=== PATIENT | male | born 1970 | race Caucasian/White ===

== ENCOUNTER 2024-05-12 21:44 | Emergency (ER) | payer BC, SELFPAY ==
--- NOTE | ~2024-05-12 | CT_ITS ---
EXAMINATION: CTA chest abdomen pelvis DATE: 05/12/2024 22:48 INDICATION: Chest pain radiating to the back. TECHNIQUE: Computed tomographic angiography (CTA) of the chest, abdomen, and pelvis was performed wit h 100 mL Omnipaque-350 intravenous contrast. Automated exposure control and iterative reconstruction technique were employed. The dose-length product was 1387.60 mGy-cm. Maximum intensity projection 3D- reconstructions of the aorta and other arteries were constructed by the technologist on a separate wo rkstation. COMPARISON: None. FINDINGS: CHEST CTA: The lungs demonstrate minimal atelectasis. No pleural effusion. The heart size is normal. No pericard ial effusion. There is no pulmonary embolus. Thoracic aorta is normal. There is a small sliding hiata l hernia. There is mild thoracic spondylosis. ABDOMEN AND PELVIS CTA: The liver, gallbladder, spleen, pancreas, adrenal glands and kidneys are normal. There are bilateral inguinal hernias containing fat. There are no dilated loops of bowel. The appendix is normal. There i s mild aortic atherosclerosis. There are no pathologically enlarged lymph nodes. There is no free int raperitoneal fluid. 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 There is mild lumbar spondylosis. IMPRESSION: 1. Mild aortic atherosclerosis. No aneurysm or dissection. 2. Small sliding hiatal hernia. 3. Bilateral inguinal hernias containing fat. Reviewed, dictated and finalized at location E.
--- NOTE | ~2024-05-12 | XR_ITS ---
XR chest 1V portable Ordering provider: Lisandro Onofre MD History: 53 years Male with . Chest pain . Comparison: July 11, 2015 FINDINGS: MEDIASTINUM: The cardiac silhouette is not enlarged. LUNGS: No infiltrates, effusions or pneumothorax. Prominent markings in the lower lobes. OTHER: No free air under the diaphragm. Degenerative changes of the spine. IMPRESSION: No acute cardiopulmonary pathology. Reviewed, dictated and finalized at location A.
[2024-05-12 21:46] VITALS: BP 155/108; PULSE 86; RESP 18; TEMP 36.5; O2SAT 97
--- NOTE | 2024-05-12 21:46 | ECG_ITS ---
Test Date: 2024-05-12 21:53:08 Measurements Intervals [place] Rate: 79 P: 27 MS: 176 QRS: 3 QRSD: 95 T: 10 QT: 369 QTc: 424 Interpretive Statements SINUS RHYTHM NORMAL ELECTROCARDIOGRAM No previous ECG available for comparison Electronically Signed On 05-13-2024 15:12:18 CDT by Narciso Pham M.D.
[2024-05-12 21:56] LABS: Basophils Absolute Auto 0.1 K/mm3 (0.0-0.1); Basophils Percent Auto 0.3 % (0.2-1.2); Eosinophils Absolute Auto 0.3 K/mm3 (0-0.3); Eosinophils Percent Auto 1.8 % (0-4.4); Hematocrit 45.3 % (42.0-52.0); Hemoglobin 15.6 g/dL (14.0-18.0); Immature Granulocyte Absolute 0.07 K/mm3 (0.00-0.031); Immature Granulocyte Percent A 0.5 % (0-0.5); Lymphocytes Absolute Auto 1.42 K/mm3 (0.9-3.2); Lymphocytes Percent Auto 9.9 % (18.3-44.2); Mean Corpuscular HGB Conc 34.4 g/dl (32-36); Mean Corpuscular Hemoglobin 30.8 pg (26-34); Mean Corpuscular Volume 89.5 fl (80-100); Mean Platelet Volume 10.5 fl (7.4-10.4); Monocytes Percent Auto 7.1 % (2.6-8.5); Neutrophils Absolute Auto 11.5 K/mm3 (1.3-6.7); Neutrophils Percent Auto 80.4 % (45.5-73.1); Platelet Count Result 230 k/mm3 (150-375); Red Blood Count 5.06 M/mm3 (4.6-6.20); Red Cell Distribution Width 11.9 % (11.5-14.5); White Blood Count 14.4 K/mm3 (4.5-10.0)
[2024-05-12 22:05] LABS: INR 1.1; Prothrombin Time 14.1 Seconds (11.1-14.7)
[2024-05-12 22:07] LABS: Partial Thromboplastin Time 24.9 Seconds (22.3-36.8)
[2024-05-12 22:13] LABS: Alanine Aminotransferase 36 U/L (6-50); Albumin Level 4.8 g/dL (3.5-5.1); Alkaline Phosphatase 75 U/L (38-126); Anion Gap 9 mmol/L (4-12); Aspartate Amino Transferase 38 U/L (17-59); Bilirubin,Total 0.5 mg/dL (0.2-1.3); Blood Urea Nitrogen 17 mg/dL (9-20); Calcium 9.3 mg/dL (8.4-10.2); Carbon Dioxide 25 mmol/L (22-30); Chloride 108 mmol/L (98-107); Estimated CRCL calculation 109 ml/min; Estimated Glomerular Filt Rate > 60; Glucose 112 mg/dL (65-110); Lipase 67 U/L (23-300); Potassium 3.9 mmol/L (3.4-5.0); Sodium 142 mmol/L (137-145)
--- NOTE | 2024-05-12 22:14 | ED.GENADULT ---
HPI - General Adult General Chief complaint: Chest Pain Stated complaint: chest pain Time Seen by Provider: 05/12/24 21:46 History of Present Illness HPI narrative: This is a 53-year-old male presenting ED with chief complaint of chest pain. The patient says he has had chest pain for most of his life. He was seen by Cardiology in the past with no clear etiology. However the chest pain has resurfaced over the last week. He describes it as a radiating pain from his center of his chest to his back. He came in today because he started to have multiple episodes of profuse vomiting and diarrhea. This has made his chest pain worse. Associated symptoms include shortness of breath patient has been dealing with some peripheral edema for the last several months. Patient's has a sick family member who has been having nausea vomiting. Patient denies fevers, abdominal pain, URI symptoms. Related Data Allergies Allergy/AdvReac Type Severity Reaction Status Date / Time No Known Allergies Allergy Unverified 02/01/19 18:44 [facility] Social History Social History Smoking status: Never smoker Alcohol intake: never Exam Narrative: APPEARANCE: No apparent distress. Head: atraumatic. EYES: EOMI, NOSE: Atraumatic NECK: Trachea midline RESPIRATORY: No increased rate of breathing Clear to auscultation CARDIOVASCULAR: RRR, no peripheral edema ABDOMINAL: Non-distended soft nontender MUSCULOSKELETAl: No obvious deformities NEURO: Alert. Moving 4/4 extremities SKIN:: Warm, dry. Normal color PSYCHIATRIC: Normal affect Course Vital Signs Vital signs: Vital Signs Temperature 97.7 F 05/12/24 21:46 Pulse Rate 86 05/12/24 21:46 Respiratory Rate 18 05/12/24 21:46 Blood Pressure 155/108 H 05/12/24 21:46 Pulse Oximetry 97 05/12/24 21:46 Oxygen Delivery Room Air 05/12/24 21:46 Temperature 97.7 F 05/12/24 21:46 Pulse Rate 86 05/12/24 21:46 Respiratory Rate 18 05/12/24 21:46 Blood Pressure 155/108 H 05/12/24 21:46 Pulse Oximetry 97 05/12/24 21:46 Oxygen Delivery Room Air 05/12/24 21:46 Medical Decision Making [facility] Narrative Medical decision making narrative: -Course: 53-year-old male presenting with nausea vomiting and chest pain. Workup including a CTA chest abdomen pelvis laboratory studies and viral swabs was all unremarkable. During his stay the patient developed worsening diarrhea. Presentation consistent with gastroenteritis. Patient is given fluid rehydration and antiemetics with improvement. He is now tolerating p.o.. His pain is improved although he still feels unwell. Patient was instructed on expected clinical course, given primary care follow-up return precautions. -DDX includes but is not limited to: ACS, aortic pathology, gastroenteritis, dehydration, colitis -Co-morbidities complicating care: chronic chest pain, gastritis, GERD hypertension -Independent interpretation of studies:white count 14.4. Metabolic panel unremarkable. Troponins negative x2. Viral swabs negative. Chest x-ray unremarkable. CTA chest abdomen pelvis unremarkable. Independent EKG interpretation: Rhythm [sinus], Rate [79], Norman -[normal], LA -[normal], QRS [narrow], QTC [normal], T waves -[negative for concerning inversions], ST Segments - [Negative for concerning elevations] Final interpretations: [Normal Sinus Rhythm] -Interventions: 3 L normal saline, Zofran, Pepcid, Compazine, Benadryl, Toradol, Bentyl -Shared decision making / Disposition: discharge -RX Zofran, Bentyl Vital Signs Vital Signs: Vital Signs Temperature 97.7 F 05/12/24 21:46 Pulse Rate 86 05/12/24 21:46 Respiratory Rate 18 05/12/24 21:46 Blood Pressure 155/108 H 05/12/24 21:46 Pulse Oximetry 97 05/12/24 21:46 Oxygen Delivery Room Air 05/12/24 21:46 Temperature 97.7 F 05/12/24 21:46 Pulse Rate 86 05/12/24 21:46 Respiratory Rate 18 05/12/24 21:46 Blood Pressure 155/108 H 05/12/24
[2024-05-12 22:24] LABS: Troponin I < 0.012 ng/mL (0.000-0.034)
[2024-05-12] MEDS: ONDANSETRON INJ 4 MG/2 ML VIAL IV PUSH (22:24)
[2024-05-12] MEDS: FAMOTIDINE 20 MG/2 ML VIAL IV PUSH (22:27)
[2024-05-12 22:46] LABS: NT Pro B Type Natriuretic Pept 42 pg/mL (19.9-100)
[2024-05-12 23:08] LABS: Influenza A QL RT-PCR Negative (Negative); Influenza B QL RT-PCR Negative (Negative); RSV RNA, RT-PCR Negative (Negative); SARS-CoV-2 RNA PCR Negative (Negative)
[2024-05-13] MEDS: diphenhydrAMINE HCl INJ 50 MG/ML VIAL 25 MG IV PUSH (00:43)
[2024-05-13] MEDS: PROCHLORPERAZINE EDISYLATE 10 MG/2 ML VIAL IV PUSH (00:45)
[2024-05-13] MEDS: KETOROLAC 15 MG/ML VIAL (*BKC) IV PUSH (00:47)
[2024-05-13] MEDS: DICYCLOMINE HCL INJ 20 MG/2 ML VIAL IM (00:49)
[2024-05-13 02:02] LABS: Troponin I < 0.012 ng/mL (0.000-0.034)
== END 2024-05-13 02:31 | disposition home or self-care (01) ==
PROVIDERS: Emergency Provider Emergency Medicine
DX: R07.89 Other chest pain (principal); K52.9 Noninfective gastroenteritis and colitis, unspecified; Z20.822 Contact with and (suspected) exposure to COVID-19; I10 Essential (primary) hypertension; K21.9 Gastro-esophageal reflux disease without esophagitis; I70.0 Atherosclerosis of aorta; K44.9 Diaphragmatic hernia without obstruction or gangrene; K40.90 Unilateral inguinal hernia, without obstruction or gangrene, not specified as recurrent
CPT/HCPCS: 36415; 71045; 71275; 74174; 80053; 83690; 83880; 84484; 85025; 85610; 85730; 87637; 93005; 96372; 96374; 96375; 99284; J0500; J0780; J1200; J1885; J2405; Q9967

== ENCOUNTER 2024-06-27 11:07 | Outpatient (CLI) | payer BC, SELFPAY ==
--- NOTE | ~2024-06-27 | XR_ITS ---
3 VIEWS LUMBAR SPINE Ordering provider: Fredis Soto MD History: . M54.6 - Pain in thoracic spine MIDBACK PAIN, NO INJURY . Comparison: None. FINDINGS: VERTEBRAL BODIES:Loss of volume anteriorly seen in T12 and L1 which is most likely chronic. Otherwise , No visible fracture or subluxation. DISK SPACES: Normal. Facet joint disease in the lower lumbar area SOFT TISSUES: Normal. IMPRESSION: No acute osseous abnormality lumbar spine. Reviewed, dictated and finalized at location A.
--- NOTE | ~2024-06-27 | XR_ITS ---
3 VIEWS THORACIC SPINE Ordering provider: Fredis Soto MD History: . M54.6 - Pain in thoracic spine, MIDBACK PAIN, NO INJURY . Comparison: None. FINDINGS: VERTEBRAL BODIES: Normal height and alignment. No visible fracture or subluxation. DISK SPACES: Normal. SOFT TISSUES: Normal. IMPRESSION: No acute osseous abnormality of the thoracic spine. Reviewed, dictated and finalized at location A.
[2024-06-27 12:28] LABS: Hemoglobin A1C 5.2 % (<5.7)
[2024-06-27 12:31] LABS: Cholesterol 129 mg/dL (0-200); HDL Direct 42 mg/dL; Triglycerides 122 mg/dL (<150)
[2024-06-27 12:40] LABS: LDL Cholesterol Direct 67 mg/dL
[2024-06-27 13:02] LABS: Prostate Specific Antigen 0.2 ng/mL (< OR = 4.0)
== END 2024-06-27 11:08 | disposition home or self-care (01) ==
LOC: ANHLAB 11:14
PROVIDERS: PCP Family Medicine; Visit Provider Family Medicine
DX: Z00.00 Encounter for general adult medical examination without abnormal findings (principal); M54.6 Pain in thoracic spine
CPT/HCPCS: 36415; 72072; 72100; 80061; 83036; 84153; G0103

== ENCOUNTER 2024-07-16 15:33 | Outpatient (CLI) | payer BC, SELFPAY ==
--- NOTE | ~2024-07-16 | US_ITS ---
EXAMINATION: US soft tissue head and neck DATE: 07/16/2024 16:46 INDICATION: Cervicalgia with pain at the right posterior base of the neck TECHNIQUE: Multiple grayscale and Doppler ultrasound images of the region of concern at the posterior right base of the neck as well as the contralateral left posterior base of the neck were obtained. COMPARISON: None FINDINGS: Normal appearance to the subcutaneous tissues at the region of concern. No pathologically enlarged ly mphadenopathy or other abnormal masses or fluid collections identified. IMPRESSION: 1. Normal study with no pathologically enlarged lymphadenopathy or other abnormal masses or fluid col lections at the region of concern. Reviewed, dictated and finalized at location A. IMPRESSION: 1. Normal study with no pathologically enlarged lymphadenopathy or other abnorm al masses or fluid collections at the region of concern.
== END 2024-07-16 15:34 | disposition home or self-care (01) ==
LOC: ANHIMG 15:35
PROVIDERS: PCP Family Medicine; Visit Provider Family Medicine
DX: M54.2 Cervicalgia (principal)
CPT/HCPCS: 76536

== ENCOUNTER 2024-08-05 11:14 | Outpatient (CLI) | payer BC, SELFPAY ==
--- NOTE | ~2024-08-05 | MR_ITS ---
EXAMINATION: MR orbits face neck wo con DATE: 08/05/2024 11:50 INDICATION: Right neck mass. TECHNIQUE: Magnetic resonance imaging (MRI) of the neck was performed without intravenous contrast. COMPARISON: Ultrasound 07/16/2024 FINDINGS: There is mucosal thickening in the paranasal sinuses. The orbits are normal. There is a ski n marker at the posterior neck. There are no pathologically enlarged lymph nodes. IMPRESSION: 1. No abnormal neck mass or lymphadenopathy. Reviewed, dictated and finalized at location A.
== END 2024-08-05 11:15 | disposition home or self-care (01) ==
LOC: GOSHIMG 11:14
PROVIDERS: PCP Family Medicine; Visit Provider Family Medicine
DX: R22.1 Localized swelling, mass and lump, neck (principal)
CPT/HCPCS: 70540